=== PATIENT | male | born 1955 | race Caucasian/White ===

== ENCOUNTER 2021-03-29 16:30 | Emergency (ER) | payer MEDICARE, BC, SELFPAY ==
--- NOTE | 2021-03-29 | ECG_ITS ---
Test Reason : CHEST KRIS Blood Pressure : / mmHG Vent. Rate : 062 BPM Atrial Rate : 062 BPM P-R Int : 180 ms QRS Dur : 090 ms QT Int : 386 ms P-R-T Axes : 063 037 169 degrees QTc Int : 391 ms Normal sinus rhythm Low voltage QRS Possible Anterolateral infarct , age undetermined Abnormal ECG No previous ECGs available Referred By: Generic ED Physician Electronically Signed By:PHILIP GOMEZ
--- NOTE | ~2021-03-29 | XR_ITS ---
EXAMINATION: XR CHEST CLINICAL INFORMATION: 65-year-old male patient with chest pain. COMPARISON: None available. TECHNIQUE: AP portable semierect view of the chest was obtained. The time examination was 4:50 PM. FINDINGS: The heart is enlarged. Sternotomy wires are in place. A left-sided pectoral AICD pacemaker with a single lead is directed to the right ventricle. Pulmonary vascularity is normal. There is no evidence of pulmonary edema or pleural effusion. XR/XR chest 1V IMPRESSION: 1. Enlarged heart. AICD pacemaker. 2. No evidence of cardiac decompensation.
[2021-03-29 16:31] VITALS: BP 128/71; PULSE 62; RESP 20; TEMP 36.6; O2SAT 97; BMI 29.6
--- NOTE | 2021-03-29 17:12 | ED_ITS ---
HPI - Chest Pain General Chief Complaint: Chest Pain Stated Complaint: chest and back discomfort Time Seen by Provider: 03/29/21 16:52 Source: patient Mode of arrival: ambulatory History of Present Illness HPI narrative: 65-year-old male with a past medical history of borderline diabetes, CHF, HTN, triple bypass, pacemaker on Eliquis, presenting to the ED complaining right-sided chest pain radiating to back starting this morning after routine blood work. Admits pain worse with movement, palpation, and deep breathing. Denies missing any doses of his Eliquis. Denies fever, chills, cough, nausea/vomiting, numbness, tingling, weakness, lightheadedness/dizziness, history of blood clots, recent travel, cigarette smoking MD complaint: chest pain and chest discomfort Related Data Allergies Allergy/AdvReac Type Severity Reaction Status Date / Time Latex, Natural Rubber Allergy Itching Verified 03/29/21 16:37 ezetimibe [From Zetia] AdvReac Muscle Pain Verified 03/29/21 16:37 Review of Systems Review of Systems: Constitutional: No Fever, No Chills Cardiovascular: + Chest Pain, No SOB, No Palpitations Respiratory: No Cough, No Sputum, No Wheezing, No Smoke Exposure Gastrointestinal: No Nausea, No Vomiting, No Diarrhea, No Constipation, No Abdominal pain Genitourinary: No Dysuria, No Urinary Frequency, No Hematuria Musculoskeletal: No joint pain, No Myalgias, No Joint Swelling Skin: No Skin Lesions, No rash Neuro: No Weakness, No Numbness, No Paresthesias, No Dizziness, No Headache Yes all other systems are reviewed and are negative [facility] Past Medical History Attestation statement: The following information was validated with the patient. Medical History (Updated 03/29/21 @ 22:09 by SULY Hall) Borderline diabetes CHF (congestive heart failure) HTN (hypertension) Kidney stone Pacemaker Surgical History (Updated 03/29/21 @ 16:36 by Reema Sánchez) S/P triple vessel bypass Social History Social History Advance Directives: No Advance Directives Information Provided: No Physical Exam Vital Signs: Vital Signs: Last Vital Signs Temp 97.9 F 03/29/21 16:31 Pulse 54 03/29/21 20:50 Resp 15 03/29/21 20:50 BP 112/59 L 03/29/21 20:50 Pulse Ox 93 07/10/21 20:50 Body Mass Index 29.6 Const: General: cooperative, healthy appearing and no acute distress Orientation/consciousness: patient oriented x3 Limitations: no limitations HENMT: Head: Yes normal to inspection Ears: hearing grossly normal bilaterally General nose exam: Normal external nose present Face and sinus: Yes normal facial exam Eyes: General: appearance normal, both eyes and all related structures EOM: EOMs intact bilaterally Neck: Neck: Yes normal visual inspection and Yes no meningeal signs Chest: Chest palpation & inspection: normal inspection of the chest, no crepitus and tenderness (Right anterior chest wall reproducing subjective complaint) Resp: Effort & Inspection: normal respiratory effort Auscultation: clear to auscultation bilaterally, no rales and no wheezes Cardio: Rate: regular rate Heart sounds: S1 normal heart sound present and S2 normal heart sound present GI: Inspection: Yes normal to inspection Palpation (GI): Soft to palpation, nontender, no guarding and not rigid Skin: Rashes: no rashes Wounds: no wounds Neuro: General: patient oriented x3 and no meningeal signs Gait exam (Neuro): Normal gait present Extrem: General: Yes normal to inspection, Yes no pedal edema and Yes no calf tenderness Course Course Course Narrative: -no leukocytosis, H&H stable, troponin 14.4 >> will obtain 3 hour repeat. BNP 276 XR chest 1V IMPRESSION: 1. Enlarged heart. AICD pacemaker. 2. No evidence of cardiac decompensation. -2205--CRP WNL. repeat troponin without 50% rise, [place] unlikely > results discussed with patient and family at bedside including worrisome signs and symptoms and strict return precautions. 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 On exam VSS, NAD/well upon, pain is reproducible on exam, lungs CTA, no pedal edema or calf tenderness. Rule out ACS vs costochondritis vs pneumonia vs CHF. Low concern for PE/DVT as patient is anticoagulated and has not missed any doses of Eliquis. Sheron ferraro rn for pericarditis/dissection Plan: EKG, labs, CXR, reassess Medical Records Data Attestation: I reviewed the patient's medical records. Lab Data Attestation: I reviewed the patient's lab results. Result diagrams: 03/29/21 18:07 03/29/21 18:07 Labs: Lab Results 03/29/21 03/29/21 03/29/21 Range/Units 18:06 18:06 18:07 WBC (4.8-10.8) X10*3/uL RBC (4.60-5.80) X10*6/uL Hgb (14.0-18.0) g/dl Hct (42-52) % MCV (80-98) fL MCH (27.0-33.0) pg MCHC (31.0-36.0) g/dl RDW (11.0-16.0) % Plt Count (160-400) X10*3/uL MPV (9.4-12.4) fL Immature Gran % (Auto) (0.0-0.4) % Neut % (Auto) (45-73) % Lymph % (Auto) (20-40) % Weakley % (Auto) (2-11) % Eos % (Auto) (0-4) % Baso % (Auto) (0-2) % Lymph # (Auto) (1.2-4.9) X10*3/uL Weakley # (Auto) (0.1-1.2) X10*3/uL Eos # (Auto) (0.0-0.4) X10*3/uL Baso # (Auto) (0.0-0.2) X10*3/uL Abs Immat Gran (auto) (0.00-0.03) X10*3/uL Absolute Neuts (auto) (2.0-8.3) X10*3/uL Absolute Nucleated RBC (0.0-0.012) X10*3/uL Nucleated RBC % (auto) (0.0-0.2) /100WBC PT 13.4 H (9.9-13.0) SEC INR 1.2 H (0.9-1.1) APTT 34.3 (24.1-38.0) SEC Sodium 141 (135-145) mmol/L Potassium 4.8 (3.3-5.1) mmol/L Chloride 106 (96-108) mmol/L Carbon Dioxide 23 (22-29) mmol/L Anion Gap 17 (12-20) BUN 17 H (9-16) mg/dL Creatinine 1.33 (0.5-1.4) mg/dL Estim Creat Clear Calc 58.2 Estimated GFR 54 Random Glucose 109 (60-115) mg/dL Calcium 9.4 (8.4-10.2) mg/dL Magnesium 2.1 (1.6-2.6) mg/dL Total Bilirubin 0.7 (0.0-1.0) mg/dL Direct Bilirubin 0.2 (0.0-0.5) mg/dL AST 24 (5-37) U/L ALT 29 (0-40) U/L Alkaline Phosphatase 68 (39-117) U/L Troponin I High Sens 14.4 (<3.5-35.0) ng/L C-Reactive Protein 0.20 (< or = 0.50) mg/dL B-Natriuretic Peptide 276 H (<100) pg/mL Total Protein 7.0 (6.5-8.0) g/dL Albumin 4.5 (3.5-5.0) g/dL 03/29/21 03/29/21 03/29/21 Range/Units 18:07 18:07 21:06 WBC 9.4 (4.8-10.8) X10*3/uL RBC 4.58 L (4.60-5.80) X10*6/uL Hgb 14.3 (14.0-18.0) g/dl Hct 43.3 (42-52) % MCV 94.5 (80-98) fL MCH 31.2 (27.0-33.0) pg MCHC 33.0 (31.0-36.0) g/dl RDW 12.9 (11.0-16.0) % Plt Count 180 (160-400) X10*3/uL MPV 11.8 (9.4-12.4) fL Immature Gran % (Auto) 0.5 H (0.0-0.4) % Neut % (Auto) 76.6 H (45-73) % Lymph % (Auto) 15.1 L (20-40) % Weakley % (Auto) 6.6 (2-11) % Eos % (Auto) 0.7 (0-4) % Baso % (Auto) 0.5 (0-2) % Lymph # (Auto) 1.4 (1.2-4.9) X10*3/uL Weakley # (Auto) 0.6 (0.1-1.2) X10*3/uL Eos # (Auto) 0.1 (0.0-0.4) X10*3/uL Baso # (Auto) 0.1 (0.0-0.2) X10*3/uL Abs Immat Gran (auto) 0.05 H (0.00-0.03) X10*3/uL Absolute Neuts (auto) 7.2 (2.0-8.3) X10*3/uL Absolute Nucleated RBC 0.000 (0.0-0.012) X10*3/uL Nucleated RBC % (auto) 0.0 (0.0-0.2) /100WBC PT (9.9-13.0) SEC INR (0.9-1.1) APTT (24.1-38.0) SEC Sodium (135-145) mmol/L Potassium (3.3-5.1) mmol/L Chloride (96-108) mmol/L Carbon Dioxide (22-29) mmol/L Anion Gap (12-20) BUN (9-16) mg/dL Creatinine (0.5-1.4) mg/dL Estim Creat Clear Calc Estimated GFR Random Glucose (60-115) mg/dL Calcium (8.4-10.2) mg/dL Magnesium (1.6-2.6) mg/dL Total Bilirubin (0.0-1.0) mg/dL Direct Bilirubin (0.0-0.5) mg/dL AST (5-37) U/L ALT (0-40) U/L Alkaline Phosphatase (39-117) U/L Troponin I High Sens 15.3 (<3.5-35.0) ng/L C-Reactive Protein (< or = 0.50) mg/dL B-Natriuretic Peptide Cancelled (<100) pg/mL Total Protein (6.5-8.0) g/dL Albumin (3.5-5.0) g/dL ECG Data ECG #1: ECG interpretation date: 03/29/21 ECG interpretation time: 16:37 Prior ECG tracings: not available for review Interpretation: EKG normal sinus rhythm with a rate of 62. Low voltage. Inverted T-waves in V5 V6 Discharge Plan Discharge Clinical Impression: Chest pain Patient Disposition: Home, Self-Care Instructions: Chest Pain (ED) Additional Instructions: Your blood work was reassuring today in the emergency department It is important for you to follow-up with her injection mold tooling technician this week as scheduled If her symptoms persist or worsen, recur, become more constant, have shortness of breath, swelling in your legs, fever, or cough please return to the ED immediately Referrals: Isaias Davis MD [Primary Care Provider] - 2 days
--- NOTE | 2021-03-29 18:08 | PC.NURSE ---
IV placed and labs obtained. Pt appears to be in NAD. Sinus rhythm to sinus shelia on the monitor
[2021-03-29 18:13] LABS: MANUAL DIFF FLAG NO
[2021-03-29 18:17] LABS: Basophils Absolute Auto 0.1 X10*3/uL (0.0-0.2); Basophils Percent Auto 0.5 % (0-2); Eosinophils Absolute Auto 0.1 X10*3/uL (0.0-0.4); Eosinophils Percent Auto 0.7 % (0-4); Hematocrit 43.3 % (42-52); Hemoglobin 14.3 g/dl (14.0-18.0); Imm Gran Abs Auto 0.05 X10*3/uL (0.00-0.03); Imm Gran Pct Auto 0.5 % (0.0-0.4); Lymphocytes Absolute Auto 1.4 X10*3/uL (1.2-4.9); Lymphocytes Percent Auto 15.1 % (20-40); Mean Corpuscular Hemoglobin 31.2 pg (27.0-33.0); Mean Corpuscular Volume 94.5 fL (80-98); Mean Platelet Volume 11.8 fL (9.4-12.4); Monocytes Absolute Auto 0.6 X10*3/uL (0.1-1.2); Monocytes Percent Auto 6.6 % (2-11); Neutrophils Absolute Auto 7.2 X10*3/uL (2.0-8.3); Neutrophils Percent Auto 76.6 % (45-73); Platelet Count 180 X10*3/uL (160-400); Red Blood Count 4.58 X10*6/uL (4.60-5.80); Red Cell Distribution Width 12.9 % (11.0-16.0); White Blood Count 9.4 X10*3/uL (4.8-10.8)
[2021-03-29 18:27] LABS: INTERNATIONAL NORM RATIO 1.2 (0.9-1.1); Prothrombin Time 13.4 SEC (9.9-13.0)
[2021-03-29 18:30] LABS: Partial Thromboplastin Time 34.3 SEC (24.1-38.0)
[2021-03-29 18:46] LABS: Alanine Aminotransferase 29 U/L (0-40); Albumin Level 4.5 g/dL (3.5-5.0); Alkaline Phosphatase 68 U/L (39-117); Anion Gap 17 (12-20); Aspartate Amino Transferase 24 U/L (5-37); Bilirubin Direct 0.2 mg/dL (0.0-0.5); Bilirubin Total 0.7 mg/dL (0.0-1.0); Blood Urea Nitrogen 17 mg/dL (9-16); Calcium 9.4 mg/dL (8.4-10.2); Carbon Dioxide 23 mmol/L (22-29); Chloride 106 mmol/L (96-108); Creatinine Clr Calc Pharmacy 58.2; Estimated Glomerular Filt Rate 54; Glucose Random 109 mg/dL (60-115); Magnesium 2.1 mg/dL (1.6-2.6); Potassium 4.8 mmol/L (3.3-5.1); Sodium 141 mmol/L (135-145)
[2021-03-29 18:49] LABS: B Type Natriuretic Peptide 276 pg/mL (<100); Troponin-I High Sensitivity 14.4 ng/L (<3.5-35.0)
[2021-03-29 19:32] VITALS: BP 126/85; PULSE 57; RESP 16; O2SAT 94
[2021-03-29 20:50] VITALS: BP 112/59; PULSE 54; RESP 15; O2SAT 93
[2021-03-29 21:48] LABS: Troponin-I High Sensitivity 15.3 ng/L (<3.5-35.0)
[2021-03-29 22:13] VITALS: BP 114/67; PULSE 58; RESP 16; TEMP 36.8; O2SAT 95
== END 2021-03-29 22:22 | disposition home or self-care (01) ==
PROVIDERS: Physician Assistant; Emergency Provider Internal Medicine; PCP Internal Medicine
DX: R07.9 Chest pain, unspecified (principal); I11.0 Hypertensive heart disease with heart failure; I50.9 Heart failure, unspecified; F17.210 Nicotine dependence, cigarettes, uncomplicated; Z95.0 Presence of cardiac pacemaker; Z79.01 Long term (current) use of anticoagulants
CPT/HCPCS: 36415; 71045; 80048; 80076; 83735; 83880; 84484; 85025; 85610; 85730; 86140; 93005; 99284; 99285